=== PATIENT | female | born 1960 | race Caucasian/White ===

== ENCOUNTER 2016-10-11 12:56 | Emergency (ER) | payer SELFPAY ==
[~2016-10-11] VITALS: Ht 170.2 cm; Wt 81.6 kg
[2016-10-11] MEDS ORDERED: IBUPROFEN 600 MG TAB As Ordered ONE (13:53)
[2016-10-11] MEDS ORDERED: IBUPROFEN 600 MG TAB PO ONE (14:00)
[2016-10-11] MEDS ORDERED: NORCOTAB PO (14:38)
[2016-10-11 14:48] VITALS: BP 110/68
--- NOTE | 2016-10-11 15:24 | REP ---
RIGHT FOOT: Four views of the right foot are performed. There is no acute fracture or dislocation. There is mild posterior and inferior calcaneal spurring as well as mild spurring of the dorsal aspect of the tarsal bones. There is mild joint space narrowing at the first metatarsal phalangeal joint as well as of the interphalangeal joints diffusely. IMPRESSION: No acute fracture or dislocation. Mild degenerative changes. Signed by Christ Greco MD 10/11/2016 03:30 P
== END 2016-10-11 14:59 | disposition home or self-care (01) ==
LOC: M ED 14:38
DX: H61.21 Impacted cerumen, right ear (principal); M54.30 Sciatica, unspecified side; M79.671 Pain in right foot

== ENCOUNTER → 2018-03-12 | Outpatient (CLI) | payer OTHER ==
[2018-03-12 11:19] LABS: BASO % 0.5 % (0.0-1.0); EOS # 0.2 10^3/uL (0.0-0.50); EOS % 1.8 % (0.0-3.0); HEMATOCRIT 44.1 % (36.0-47.0); HEMOGLOBIN 14.6 g/dl (12.0-15.5); IMMATURE GRANULOCYTE % 0.1 % (0-3.0); LYMPH # 3.9 10^3/uL (1.5-4.5); LYMPH % 45.2 % (24.0-44.0); MEAN CORPUSCULAR HGB CONC 33.1 g/dl (32.0-36.5); MEAN CORPUSCULAR VOLUME 90.7 fl (80.0-96.0); MONO # 0.6 10^3/uL (0.0-0.8); MONO % 7.2 % (0.0-5.0); NEUTROPHILS # 3.9 10^3/uL (1.8-7.7); NEUTROPHILS % 45.2 % (36.0-66.0); PLATELET COUNT, AUTOMATED 229 10^3/uL (150-450); RED BLOOD COUNT 4.86 10^6/uL (4.00-5.40); RED CELL DISTRIBUTION WIDTH 13.2 % (11.5-14.5); WHITE BLOOD COUNT 8.5 10^3/uL (4.0-10.0)
[2018-03-12 12:17] LABS: BLOOD UREA NITROGEN 12 MG/DL (7-18); CREATININE FOR GFR 0.89 MG/DL (0.55-1.30); GLUCOSE, FASTING 76 MG/DL (70-100)
[2018-03-12 12:18] LABS: ALBUMIN 3.7 GM/DL (3.2-5.2); ALBUMIN/GLOBULIN RATIO 0.97 (1.00-1.93); ALKALINE PHOSPHATASE 82 U/L (45-117); ALT/SGPT 15 U/L (12-78); ANION GAP 7 MEQ/L (8-16); AST/SGOT 14 U/L (7-37); BILIRUBIN,TOTAL 0.5 MG/DL (0.2-1.0); CARBON DIOXIDE LEVEL 25 MEQ/L (21-32); CHLORIDE LEVEL 109 MEQ/L (98-107); CHOLESTEROL LEVEL 214 MG/DL (<200); CHOLESTEROL RISK RATIO 4.755 (<5); GLOMERULAR FILTRATION RATE > 60.0 (>51); HDL CHOLESTEROL 45 MG/DL (>40); LDL CHOLESTEROL 142 MG/DL (<100); NON-HDL-C 169 MG/DL; POTASSIUM SERUM 4.2 MEQ/L (3.5-5.1); SODIUM LEVEL 141 MEQ/L (136-145); TOTAL PROTEIN 7.5 GM/DL (6.4-8.2); TRIGLYCERIDES LEVEL 137 MG/DL (<150)
== END ==
LOC: M LAB 09:42
DX: Z00.01 Encounter for general adult medical examination with abnormal findings (principal); G64 Other disorders of peripheral nervous system
CPT/HCPCS: 84443

== ENCOUNTER → 2019-09-02 | Outpatient (CLI) | payer OTHER ==
[~2019-09-02] MED LIST: HYDR-3715 PO
--- NOTE | 2019-09-02 16:56 | REP ---
Right foot series: Four views. History: Pain in the right foot. Findings: Four views of the right foot are compared with prior study from October 11, 2016. Plantar and Achilles calcaneal spurring is noted. There is some midfoot osteoarthritic spurring. Tendon insertion site spurring is seen on the proximal end of the fifth metatarsal. These findings are all unchanged. Overall mineralization pattern is normal. No erosive changes seen. No fracture is noted. Impression: Heel spurring and midfoot spurring. No acute bony abnormality. Electronically Signed by Jamey Shirley MD 09/02/2019 08:11 P
--- NOTE | 2019-09-02 16:58 | REP ---
SI joint series: Four views. History: Right-sided sciatica. Comparison radiographs September 09, 2005. Findings: A transitional lumbosacral junction is seen with sacralization of what appears to be the transverse process at L5 on the right. This is unchanged. There is mild degenerative sclerosis of the SI joints bilaterally similar to the 2006 prior study. No erosive changes seen. Impression: Mild degenerative sclerosis. No erosive change or ankylosis seen. Transitional lumbosacral junction. Electronically Signed by Jamey Shirley MD 09/02/2019 08:11 P
== END ==
LOC: M RAD 12:33
PROVIDERS: ATTEND Physician Assistant
DX: M77.31 Calcaneal spur, right foot (principal); M54.31 Sciatica, right side; M53.3 Sacrococcygeal disorders, not elsewhere classified

== ENCOUNTER → 2020-08-25 | Outpatient (CLI) | payer OTHER ==
--- NOTE | 2020-08-26 01:29 | ECWPNPC ---
PATIENT NAME: KHRIS NEWELL : 1960 GENDER: FEMALE VISIT DATE: 08/25/2020 DISCHARGE DATE: 08/25/20944 VISIT LOCKED DATE TIME: PHYSICIAN: LOGAN SHERMAN PHYSICIAN PAGER NO: ACTIVE RESOURCE: LOGAN SHERMAN REASON FOR APPOINTMENT 1. LUMBAR SPINE STENOSIS AND BACK PAIN HISTORY OF PRESENT ILLNESS DEPRESSION SCREENING: PHQ-9 LITTLE INTEREST OR PLEASURE IN DOING THINGSSEVERAL DAYS FEELING DOWN, DEPRESSED, OR HOPELESSMORE THAN HALF THE DAYS TROUBLE FALLING OR STAYING ASLEEP, OR SLEEPING TOO MUCHNEARLY EVERY DAY FEELING TIRED OR HAVING LITTLE ENERGYMORE THAN HALF THE DAYS POOR APPETITE OR OVEREATING NOT AT ALL FEELING BAD ABOUT YOURSELF-OR THAT YOU ARE A FAILURE OR HAVE LET YOURSELF OR YOUR FAMILY DOWN NOT AT ALL TROUBLE CONCENTRATING ON THINGS, SUCH READING THE NEWSPAPER OR WATCHING TELEVISION NOT AT ALL MOVING OR SPEAKING SO SLOWLY THAT OTHER PEOPLE COULD HAVE NOTICED. OR THE OPPOSITE- BEING SO FIDGETY OR RESTLESS THAT YOU HAVE BEEN MOVING AROUND A LOT MORE THAN USUALNEARLY EVERY DAY THOUGHTS THAT YOU WOULD BE BETTER OFF , OR OF HURTING YOURSELF IN SOME WAY?NOT AT ALL TOTAL SCORE:11 INTERPRETATIONMODERATE DEPRESSION PHQ-2 (2015 EDITION) LITTLE INTEREST OR PLEASURE IN DOING THINGS?SEVERAL DAYS FEELING DOWN, DEPRESSED, OR HOPELESS?MORE THAN HALF THE DAYS TOTAL SCORE3 GENERAL: 60-YEAR-OLD FEMALE REFERRED BY DR. [facility] FOR PERSISTENT LOW BACK PAIN WITH RIGHT LEG RADICULAR SYMPTOMS. RECENT IMAGING AND NERVE CONDUCTION STUDIES DONE AT THEIR OFFICE IS SHOWING LUMBAR SPINAL STENOSIS. PAIN HAS BEEN THERE FOR APPROXIMATELY 1 YEAR WITHOUT PRECIPITATING EVENT. DENIES BOWEL OR BLADDER INCONTINENCE. DENIES SADDLE PARESTHESIAS. PAIN IS AGGRAVATED WITH EXTENSION OF SPINE. PATIENT STATES HER WHOLE RIGHT LEG IS NUMB. ALSO COMPLAINING OF INTERMITTENT SWELLING OF THE RIGHT KNEE. SHE WILL TALK WITH PRIMARY CARE PROVIDER ABOUT RIGHT KNEE ISSUES AT NEXT APPOINTMENT. SHE MAY NEED AN ORTHOPEDIC REFERRAL FROM PRIMARY CARE. BEING MEDICATED BY [facility] FOR NEUROPATHY IN HER LOWER EXTREMITIES. REPORTING IMPROVED SLEEP WITH GABAPENTIN AT NIGHT. REVIEWED MRI OF LS SPINE AND DISCUSSED TREATMENT OPTIONS.- - -. FALL RISK SCREENING: SCREENING :NO FALLS REPORTED IN THE LAST YEAR PAIN SCREENING: PATIENT HAS A COMPLAINT OF ACUTE OR CHRONIC PAIN :YES LOCATION OF PAIN:LOW BACK INTENSITY OF PAIN (SCALE OF 1 TO 10):8 WHAT DOES YOUR PAIN FEEL LIKE:CONTINOUS, THROBBING DURATION:CONTINOUS, CONSTANT, ALL DAY PAIN IS INCREASED BY:ACTIVITIES PAIN IS DECREASED BY:USE OF PAIN MEDICATIONS NURSING NOTE: - - -. PAIN CENTER INTAKE QUESTIONS: DO YOU HAVE A HISTORY OF MRSA? :YES DO YOU TAKE A BLOOD THINNERS? :NO DO YOU HAVE ANY BLEEDING DISORDERS? :NO ANY NEW NUMBNESS OR WEAKNESS IN YOUR LEGS OR ARMS? :YES NUMBNESS RIGHT LEG ANY PACEMAKER,DEFIBRILLATOR, OR DORSAL COLUMN STIMULATOR? :NO DO YOU HAVE ANY RASHES OR OPEN SORES? :NO ARE YOU ALLERGIC TO IV DYE? :NO ARE YOU DIABETIC? :NO ANY NEW PROBLEMS WITH YOUR MEDICATIONS? :NO HAVE YOU RECEIVED A VACCINE IN THE PAST 30 DAYS? :NO DO YOU PLAN TO RECEIVE A VACCINE IN THE NEXT 21 DAYS? :NO DO YOU NEED ANY PRESCRIPTION? :NO DO YOU TAKE ANY IMMUNOSUPPRESSIVE MEDICATIONS? :NO CURRENT MEDICATIONS TAKING IBUPROFEN 600 MG TABLET 2TABLET NEEDED ORALLY EVERY 6 HRS TAKING GABAPENTIN 300 MG CAPSULE 1 CAPSULE ORALLY ONCE A DAY TAKING CYMBALTA 30 MG CAPSULE DELAYED RELEASE PARTICLES 1 CAPSULE ORALLY TWICE A DAY TAKING VENTOLIN HFA 108 (90 BASE) MCG/ACT AEROSOL SOLUTION 1-2 PUFFS NEEDED INHALATION EVERY 6 HRS TAKING TESSALON PERLES 100 MG CAPSULE 1 CAPSULE NEEDED ORALLY THREE TIMES A DAY TAKING FLONASE ALLERGY RELIEF 50 MCG/ACT SUSPENSION 1 SPRAY IN EACH NOSTRIL NASALLY BID TAKING NAPROXEN 500 MG TABLET 1 TABLET WITH FOOD OR MILK NEEDED ORALLY EVERY 12 HRS TAKING GABAPENTIN 100 MG CAPSULE 1 CAPSULE ORALLY ONCE A DAY TAKING FLUOXETINE HCL 40 MG CAPSULE 1 CAPSULE ORALLY ONCE A DAY TAKING CYCLOBENZAPRINE HCL 10 MG TABLET 1 TABLET AT BEDTIME NEEDED ORALLY ONCE A DAY NOT-TAKING PREDNISONE 10 MG TABLET 3 TABLETS ORALLY ONCE A DAY MEDICATION LIST REVIEWED AND RECONCILED WITH THE PATIENT PAST MEDICAL HISTORY NICOTINE ADDICTION MRSA- NECK ABSCESS PCSD LOW BACK BACK ALLERGIES CODINE: DYSPNEA - SIDE EFFECTS SURGICAL HISTORY ABSCESS LANCED AT [facility] FAMILY HISTORY FATHER: ALIVE 70 YRS MOTHER: 81 YRS, DIAGNOSED WITH DIABETES SIBLINGS: , GUN SHOT WOUND SON(S): ALIVE DAUGHTER(S): ALIVE 1 BROTHER(S) . 1 SON(S) , 1 DAUGHTER(S) - HEALTHY. SOCIAL HISTORY GENERAL: TOBACCO USE ARE YOU A:CURRENT SMOKER NOT LATELY D/T ILLNESS ARE YOU INTERESTED IN QUITTING?NOT READY TO QUIT COUNSELED THE PATIENT ON SMOKING EFFECTS, EDUCATION [id number]/02/2016 HOW MANY CIGARETTES A DAY DO YOU SMOKE?5 OR LESS HOW SOON AFTER YOU WAKE UP DO YOU SMOKE YOUR FIRST CIGARETTE?AFTER 60 MIN HOW OFTEN DO YOU SMOKE CIGARETTES?EVERY DAY PATIENT COUNSELED ON THE DANGERS OF TOBACCO USE AND URGED TO QUIT:05/31/2016 SMOKING CESSATION INFORMATION GIVEN05/31/2016 LATEX QUESTIONNAIRE LATEX ALLERGY : HAVE YOU EVER DEVELOPED ANY TYPE OF REACTION AFTER HANDLING LATEX PRODUCTS SUCH RUBBER GLOVES, CONDOMS, DIAPHRAGMS, BALLOONS, SOCKS, OR UNDERWEAR?NO LATEX ALLERGY : HAVE YOU EVER DEVELOPED ANY TYPE OF REACTION DURING OR AFTER DENTAL APPOINTMENT, VAGINAL/RECTAL EXAMINATION, SURGICAL PROCEDURE, OR ANY OTHER EXPOSURE?NO LATEX RISK : HAVE YOU EVER HAD ANY DIFFICULTY BREATHING OR HIVES AFTER EATING OR HANDLING ANY FRUITS, OR VEGETABLES; SUCH KIWI, BANANAS, STONE FRUITS, OR CHESTNUTSNO LATEX RISK : DO YOU HAVE A PREVIOUS PERSONAL HISTORY OF MORE THAN NINE SURGERIES, SPINA BIFIDA, OR REPEATED CATHERIZATIONS? NO LATEX RISK : ARE YOU FREQUENTLY EXPOSED TO LATEX PRODUCTS IN YOUR OCCUPATION?NO DATE ASKED : 08/25/2020 ALCOHOL USE: NO. LUNG CANCER SCREENING SMOKING STATUS:CURRENT SMOKER BMI CARE GOAL FOLLOW-UP ABOVE NORMAL BMI FOLLOW-UPGIVING ENCOURAGEMENT TO EXERCISE ALCOHOL SCREENING DID YOU HAVE A DRINK CONTAINING ALCOHOL IN THE PAST YEAR?NO POINTS0 INTERPRETATIONNEGATIVE RECREATIONAL DRUG USE DRUG USE?NO PATIENT DENIES ABUSE OR MISSUSED OF ANY MEDICATION. PATIENT DENIES USE OF ANY ILLEGAL SUBSTANCE INCLUDING MARIJUANA OR COCAINE. CAFFEINE CAFFEINE USE?YES ONE CUP OF COFFEE YARSANISM NO JEWISH BELIEFS THAT WOULD IMPACT HEALTH CARE. LANGUAGE IRISH. LEARNING BARRIERS / SPECIAL NEEDS CHANGE FROM LAST VISIT?NO BARRIERS TO LEARNING?NO HEARING IMPAIRED?NO VISION IMPAIRED?NO COGNITIVELY IMPAIRED?NO READINESS TO LEARN?YES LEARNING PREFERENCES?NO LEARNING CAPABILITIES PRESENT?YES EMOTIONAL BARRIERS?NO SPECIAL DEVICES?NO SEAM STAYER NEEDED?NO OCCUPATION: WEB DESIGNER. MARITAL STATUS: SINGLE. HOSPITALIZATION/MAJOR DIAGNOSTIC PROCEDURE SEE ABOVE REVIEW OF SYSTEMS CONSTITUTIONAL: ANY RECENT FEVER NO . CHILLS NO . WEIGHT CHANGE OF UNKNOWN REASONS NO . MUSCULOSKELETAL: ANY UNUSUAL JOINT PAIN OR SWELLING NOT MENTIONED NO . SYSTEMIC LUPUS NO . ANY NEUROMUSCULAR DISORDER NOT MENTIONED NO . LYME DISEASE NO . GASTROENTEROLOGY: ANY NEW CHANGE IN BOWEL CONTROL? NO . HISTORY OF LIVER DISORDER NOT MENTIONED NO . HISTORY OF UNUSUAL ABDOMINAL PAIN OR CRAMPING NOT MENTIONED NO . NO CONSTIPATION. GENITOURINARY: ANY NEW CHANGE IN BLADDER CONTROL? NO . ANY RENAL/KIDNEY CONDITON NOT MENTIONED NO . NEUROLOGY: HISTORY OF TBI NOT MENTIONED NO . OTHER NEW NUMBNESS OR PAIN PATTERNS NOT MENTIONED NO . NEW ONSET DIZZINESS OR NEUROLOGICAL CHANGES NOT MENTIONED NO . HISTORY OF SEVERE HEADACHES NOT MENTIONED NO . HISTORY OF STROKE OR NEUROLOGICAL DISORDER NOT MENTIONED NO . CARDIOLOGY: HEART SURGERY NO . CONGESTIVE HEART FAILURE/FLUID OVERLOAD NOT MENTIONED NO . HISTORY OF CHEST PAIN,IRREGULAR HEART BEAT NOT MENTIONED NO . RESPIRATORY: SHORTNESS OF BREATH ON EXERTION, WHEEZES, UNUSUAL COUGH NOT MENTIONED NO . ENDOCRINOLOGY: ADRENAL GLAND OR THYROID DISORDERS NOT MENTIONED NO . UNUSUAL URINATION, DIZZINESS OR LETHARGY NOT MENTIONED NO . VITAL SIGNS WT 205 LBS, HT 66 IN, BMI 33.08 INDEX, BP 130/83 MM HG, HR 79 /MIN, RR 18 /MIN, TEMP 97.1 F, OXYGEN SAT % 99%, SAFE IN ENV? (Y/N) YEST.ALLEGRA SONG. EXAMINATION GENERAL EXAMINATION: GENERALNO ACUTE DISTRESS, WELL NOURISHED AND HYDRATED. PSYCHAPPROPRIATE MOOD AND AFFECT . NECK:NO LYMPHADENOPATHY, SUPPLE. LUNGS:CLEAR TO AUSCULTATION BILATERALLY, NO WHEEZES, RHONCHI, RALES. HEART:NO MURMURS, REGULAR RATE AND RHYTHM. MUSCULOSKELETAL:MILD WEAKNESS NOTED OVER RIGHT LEG AND FOOT. LUMBAR:SPECIFIC POINT TENDERNESS NOTED OVER RIGHT LUMBAR FACETS . PAIN IS AGGRAVATED BY EXTENSION OF SPINE/FACET LOADING . NEUROLOGIC EXAM:REPORTING NO SENSATION TO LIGHT TOUCH OVER RIGHT CALF AND FOOT. NORMAL SENSATION TO LIGHT TOUCH OVER RIGHT THIGH. NORMAL SENSATION TO LIGHT TOUCH OVER LEFT LEG. DIAGNOSTIC TESTS REVIEWEDMRI L/S SPINE 06/2020 . ASSESSMENTS DEGENERATIVE LUMBAR SPINAL STENOSIS - M48.061 (PRIMARY) LUMBAR RADICULOPATHY - M54.16 TREATMENT DEGENERATIVE LUMBAR SPINAL STENOSIS MEDICATION: OXYCODONE HCL TAB 5MG ORALLY (ORDERED FOR 09/01/2020) MEDICATION: VALIUM TAB 5MG ORALLY (DIAZEPAM) (ORDERED FOR 09/01/2020) NOTES: LUMBAR EPIDURAL STEROID INJECTION PRINTED AND REVIEWED PRE PROCEDURE WITH PATIENT BRANDEE SONG. PROCEDURE CODES FA211 ESTABILISHED PATIENT [facility] CHARGE DISPOSITION & COMMUNICATION FOLLOW UP POSTPROCEDURE (REASON: LUMBAR EPIDURAL STEROID INJECTION) ELECTRONICALLY SIGNED BY GLORIA VILLA ON 08/25/2020 AT 02:47 PM EST DISCLAIMER : THIS IS A VISIT SUMMARY EXTRACTED FROM THE [employer] CHART. IT IS NOT A COPY OF THE [employer] PROGRESS NOTE. JOSEFINA
== END ==
LOC: M PAIN 08:30
PROVIDERS: ATTEND Nurse Practitioner Family
DX: M48.061 Spinal stenosis, lumbar region without neurogenic claudication (principal); M54.16 Radiculopathy, lumbar region; F17.210 Nicotine dependence, cigarettes, uncomplicated; Z79.899 Other long term (current) drug therapy; Z88.5 Allergy status to narcotic agent

== ENCOUNTER → 2020-09-27 | Outpatient (RCR) | payer OTHER | LOC: M PT 09-11 08:54 | PROVIDERS: ATTEND Psychiatry & Neurology Neurology | DX: M48.061 Spinal stenosis, lumbar region without neurogenic claudication (principal) ==

== ENCOUNTER → 2020-11-07 | Outpatient (REF) ==
--- NOTE | 2020-11-07 09:07 | REPPI ---
INDICATION: DDD DISABILITY DIAGNOSIS DETERMINATION. COMPARISON: None. TECHNIQUE: AP, lateral, swimmer's and open mouth views of the cervical spine. FINDINGS: Alignment is maintained and there is no evidence for acute fracture/compression injury or subluxation. Advanced degenerative changes at C5-6 and C6-7 along with moderate changes at C4-5 and C7-T1. Findings include endplate sclerosis, disc space narrowing, osteophytosis. Open mouth view demonstrates normal C1-C2 articulation and odontoid process. Prevertebral soft tissues are normal. Spinous processes are intact. IMPRESSION: Moderate to advanced multilevel degenerative spondylosis. <Electronically signed by Noam Jordan > 11/07/20 0991
--- NOTE | 2020-11-07 09:12 | REPPI ---
INDICATION: DDD DISABILITY DIAGNOSIS DETERMINATION COMPARISON: 10/26/2007 TECHNIQUE: AP, lateral, coned-down views of the lumbar spine. FINDINGS: Interval change includes grade 1 anterolisthesis at the L4-5 level with endplate sclerosis and hypertrophic facet changes. Findings require correlation no obvious acute fracture is identified. Remainder of the examination demonstrates relatively normal alignment and lordosis. There is no evidence for acute fracture/compression injury. Moderate to advanced multilevel degenerative changes have increased from prior examination and include endplate sclerosis, marginal spurring/early osteophyte formation and hypertrophic facet changes. IMPRESSION: 1. New findings include grade 1 anterolisthesis at the L4-5 level with significant facet hypertrophy. 2. Moderate to advanced multilevel degenerative changes noted throughout the remainder of the lumbosacral spine. 3. No acute fracture/compression injury. <Electronically signed by Noam Jordan > 11/07/20 0908
== END ==
LOC: M PLAIMG 08:22
PROVIDERS: ATTEND Internal Medicine
DX: Z02.71 Encounter for disability determination (principal); M43.16 Spondylolisthesis, lumbar region; M25.78 Osteophyte, vertebrae; M50.30 Other cervical disc degeneration, unspecified cervical region

== ENCOUNTER 2023-12-03 16:45 | Emergency (ER) | payer OTHER ==
[~2023-12-03] VITALS: Ht 170.2 cm; Wt 82.8 kg
[2023-12-03] MEDS ORDERED: CYCL5TAB (17:06)
[2023-12-03] MEDS ORDERED: VITA200032 (17:06)
[2023-12-03] MEDS ORDERED: GABA-282 PO (17:06)
[2023-12-03] MEDS: diazePAM 5MG TABLET PO ONE (22:36)
[2023-12-03] MEDS: LIDOCAINE 5% (LIDODERM) PATCH TD ONE (22:37)
[2023-12-03] MEDS: KETOROLAC 30 MG/ML 1ML VIAL IV ONE (22:37)
[2023-12-04] MEDS ORDERED: LIDO5DIS41 TD (00:14)
[2023-12-04] MEDS ORDERED: METH-1164 PO (00:14)
[2023-12-04] MEDS ORDERED: NAPR-837 PO (00:14)
[2023-12-04 00:20] VITALS: BP 162/79; TEMP 97.6; O2SAT 99
== END 2023-12-04 00:22 | disposition home or self-care (01) ==
LOC: M ED 16:45
DX: M62.830 Muscle spasm of back (principal); M79.7 Fibromyalgia; F17.200 Nicotine dependence, unspecified, uncomplicated; Z88.5 Allergy status to narcotic agent
CPT/HCPCS: 80047; 96374; 96375; 99284; J1100; J1885

== ENCOUNTER → 2024-02-11 | Outpatient (REF) | payer OTHER ==
[~2024-02-11] MED LIST changes: +CYCL5TAB; +GABA-282 PO; +LIDO5DIS41 TD; +METH-1164 PO; +NAPR-837 PO; +VITA200032
[2024-02-11 14:29] LABS: HDL CHOLESTEROL 48.7 MG/DL (>40); LDL CHOLESTEROL 116.9 MG/DL (<100); NON-HDL-C 146.3 MG/DL
== END ==
LOC: M LAB REF 13:17
PROVIDERS: ATTEND Nurse Practitioner Family
DX: E78.5 Hyperlipidemia, unspecified (principal)

== ENCOUNTER → 2024-07-30 | Outpatient (REF) | payer OTHER ==
[~2024-07-30] MED LIST changes: -CYCL5TAB; +CYCL5TAB4; +GABA-1172 PO; -GABA-282 PO
[2024-07-30 13:02] LABS: BASO # 0.1 10^3/uL (0.0-0.2); BASO % 0.7 % (0.0-1.0); EOS # 0.1 10^3/uL (0.0-0.5); EOS % 0.8 % (0.0-3.0); HEMATOCRIT 44.6 % (36.0-47.0); HEMOGLOBIN 14.7 g/dl (12.0-15.5); LYMPH # 3.8 10^3/uL (1.5-5.0); LYMPH % 44.1 % (24.0-44.0); MONO # 0.6 10^3/uL (0.0-0.8); MONO % 6.8 % (2.0-8.0); NEUTROPHILS % 47.5 % (36.0-66.0); PLATELET COUNT, AUTOMATED 205 10^3/uL (150-450); WHITE BLOOD COUNT 8.5 10^3/uL (4.0-10.0)
[2024-07-30 13:20] LABS: HEMOGLOBIN A1c 5.3 % (4.0-6.0)
[2024-07-30 13:28] LABS: ALBUMIN 3.5 G/DL (3.2-5.2); ALKALINE PHOSPHATASE 80 U/L (35-104); ALT/SGPT 12 U/L (7.0-40); AST/SGOT 15 U/L (<34); BILIRUBIN,TOTAL 0.4 MG/DL (0.3-1.2); BLOOD UREA NITROGEN 22 MG/DL (9-23); CALCIUM LEVEL 9.5 MG/DL (8.3-10.6); CARBON DIOXIDE LEVEL 26 MMOL/L (20-31); CHLORIDE LEVEL 109 MMOL/L (98-107); CHOLESTEROL LEVEL 210 MG/DL (<200); CHOLESTEROL RISK RATIO 3.99 (<5); CREATININE FOR GFR 0.81 MG/DL (0.55-1.30); GLOMERULAR FILTRATION RATE > 60.0 (>45); GLUCOSE, FASTING 87 MG/DL (74-106); HDL CHOLESTEROL 52.6 MG/DL (>40); LDL CHOLESTEROL 128.6 MG/DL (<100); MAGNESIUM LEVEL 1.9 MG/DL (1.8-2.4); NON-HDL-C 157.4 MG/DL; SODIUM LEVEL 139 MMOL/L (136-145); TOTAL PROTEIN 7.2 G/DL (5.7-8.2); TRIGLYCERIDES LEVEL 144 MG/DL (<150)
[2024-07-30 13:30] LABS: THYROID STIMULATING HORMONE 2.878 uIU/ML (0.55-4.78); TOTAL 25(OH) VITAMIN D 25.8 NG/ML (20.0-100.0)
== END ==
LOC: M LAB REF 12:32
PROVIDERS: ATTEND Nurse Practitioner Family
DX: E78.5 Hyperlipidemia, unspecified (principal); E55.9 Vitamin D deficiency, unspecified; E66.3 Overweight